=== PATIENT | female | born 1970 | race Caucasian/White ===

== ENCOUNTER 2023-04-04 11:01 | Outpatient (OUT) | payer BC, SELFPAY ==
--- NOTE | 2023-04-04 11:21 | MM_ITS ---
Patient Name: MICHAEL RICO MR#: [id number] : 1970 Exam Date: 04/04/2023 Ordering Doctor: DR Joce Soto D.O. RADIOLOGY REPORT PROCEDURE: MM TOMOSYNTHESIS SCREENING BI COMPARISON: MG MAMM SCREEN 3D TASHIA CAD, 03/15/2021. MG MAMM SCREEN 3D TASHIA CAD, 04/02/2022. INDICATIONS: Screening Calculator Name NCI Breast Cancer Risk Assessment Tool 5 Year Breast Cancer Risk 1.10% Lifetime Breast Cancer Risk 7.90% Personal Breast Cancer No Personal Ovarian Cancer No Treatments None Family Cancers None LOCATION: [facility] BREAST COMPOSITION: Heterogeneously dense,which may obscure small masses. FINDINGS: DIAGNOSTIC CATEGORY 1--NEGATIVE. NO CHANGE FROM COMPARISON ASSESSMENT. Scattered benign-appearing calcifications are present. RIGHT BREAST: No significant suspicious finding. LEFT BREAST: No significant suspicious finding. RECOMMENDATIONS: ROUTINE MAMMOGRAM AND CLINICAL EVALUATION IN 12 MONTHS. PLEASE NOTE: A NORMAL MAMMOGRAM DOES NOT EXCLUDE THE POSSIBILITY OF BREAST CANCER. A CLINICALLY SUSPICIOUS PALPABLE LUMP SHOULD BE BIOPSIED. Dictated by: Fercho Pamrar MD on 04/04/2023 at 12:41 Approved by: Fercho Parmar MD on 04/04/2023 at 12:42
[2023-04-04 11:59] LABS: Basophils Absolute Auto 0.1 10^3/uL (0.0-0.1); Basophils Percent Auto 0.6 % (0.2-2.0); Eosinophils Absolute Auto 0.3 10^3/uL (0.0-0.7); Hematocrit 35.5 % (36.0-48.0); Hemoglobin 11.8 g/dL (12.0-16.0); Immature Granulocytes Abs Auto 0.03 10^3/uL (0.00-0.03); Immature Granulocytes Pct Auto 0.3 % (0.0-0.5); Lymphocytes Absolute Auto 3.1 10^3/uL (1.2-3.8); Mean Corpuscular HGB Conc 33.2 g/dL (29.9-35.2); Mean Corpuscular Hemoglobin 31.8 pg (26.7-34.0); Mean Corpuscular Volume 95.7 fL (81.0-99.0); Monocytes Absolute Auto 0.6 10^3/uL (0.3-0.8); Monocytes Percent Auto 5.9 % (1.7-12.0); Neutrophils Absolute Auto 5.7 10^3/uL (1.4-6.5); Neutrophils Percent Auto 58.2 % (43.0-75.0); Platelet Count 371 10^3/uL (150-450); Red Blood Count 3.71 10^6/uL (4.20-5.40); Red Cell Distribution Width 12.9 % (11.0-15.0); White Blood Count 9.8 10^3/uL (4.0-11.0)
[2023-04-04 13:27] LABS: Anion Gap 13.1; BUN Creatinine Ratio 12.9; Bilirubin Total 0.4 mg/dL (0.2-1.0); Calcium 8.8 mg/dL (8.5-10.1); Carbon Dioxide 27.3 mmol/L (21.0-32.0); Chloride 101 mmol/L (98-107); Estimated GFR (African America >60 (>=60); Estimated GFR (Non-African Ame >60 (>=60); Glucose 86 mg/dL (74-106); Potassium 3.4 mmol/L (3.5-5.1); Sodium 138 mmol/L (136-145)
[2023-04-04 13:28] LABS: Alanine Aminotransferase 15 U/L (14-59); Albumin Globulin Ratio 1.1; Albumin Level 3.9 g/dL (3.4-5.0); Alkaline Phosphatase 104 U/L (46-116); Aspartate Amino Transferase 17 U/L (15-37); Cholesterol 172 mg/dL (<=200); Globulin 3.6 g/dL; HDL Cholesterol 59 mg/dL (40-60); Total Protein 7.5 g/dL (6.4-8.2); Triglycerides 130 mg/dL (<=150)
[2023-04-04 13:29] LABS: Chol HDL Ratio 2.9; Thyroid Stimulating Hormone 5.504 uIU/mL (0.358-3.740)
== END 2023-04-04 11:02 | disposition home or self-care (01) ==
LOC: MAMMO 11:06
PROVIDERS: PCP Internal Medicine; Visit Provider Internal Medicine
DX: Z12.31 Encounter for screening mammogram for malignant neoplasm of breast (principal)
CPT/HCPCS: 36415; 77063; 77067; 80053; 80061; 84443; 85025

== ENCOUNTER 2024-05-13 11:22 | Outpatient (OUT) | payer BC, SELFPAY ==
--- NOTE | 2024-05-13 11:34 | MM_ITS ---
Patient Name: MICHAEL RICO MR#: [id number] : 1970 Exam Date: 05/13/2024 Ordering Doctor: DR Joce Soto D.O. RADIOLOGY REPORT PROCEDURE: MM TOMOSYNTHESIS SCREENING BI COMPARISON: MG MAMM SCREEN 3D TASHIA CAD, 04/02/2022. MM TOMOSYNTHESIS SCREENING BI, 04/04/2023. INDICATIONS: Screening Calculator Name NCI Breast Cancer Risk Assessment Tool 5 Year Breast Cancer Risk 1.20% Lifetime Breast Cancer Risk 7.80% Personal Breast Cancer No Personal Ovarian Cancer No Treatments None Family Cancers None LOCATION: [facility] BREAST COMPOSITION: The breasts are heterogeneously dense,which may obscure small masses. FINDINGS: DIAGNOSTIC CATEGORY 1--NEGATIVE. NO CHANGE FROM COMPARISON ASSESSMENT. Scattered benign-appearing calcifications are present. RIGHT BREAST: No significant suspicious finding. LEFT BREAST: No significant suspicious finding. RECOMMENDATIONS: ROUTINE MAMMOGRAM AND CLINICAL EVALUATION IN 12 MONTHS. PLEASE NOTE: A NORMAL MAMMOGRAM DOES NOT EXCLUDE THE POSSIBILITY OF BREAST CANCER. A CLINICALLY SUSPICIOUS PALPABLE LUMP SHOULD BE BIOPSIED. Dictated by: Fercho Parmar MD on 05/13/2024 at 12:16 Approved by: Fercho Parmar MD on 05/13/2024 at 12:53
--- OUTSIDE RECORDS SUMMARY | 2024-05-13 11:46 | XMS_ITS | CCD ---
Author Organization 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 Name Role Phone CHARLES, DR COLEY Admitting Unavailable BALL, DR COLEY Attending Unavailable BALL, DR COLEY Primary Care Unavailable BALL, DR COLEY Consulting Unavailable GONZALEZ, DR RENETTA Davis Admitting Unavailable GONZALEZ, DR RENETTA Davis Attending Unavailable BALL, DR COLEY Primary Care Unavailable GONZALEZ, DR RENETTA Davis Consulting Unavailable BALL, DR COLEY Admitting Unavailable BALL, DR COLEY Attending Unavailable BALL, DR COLEY Primary Care Unavailable BALL, DR COLEY Consulting Unavailable WEST, DR KATHY Salinas Consulting Unavailable BALL, DR COLEY Admitting Unavailable BALL, DR COLEY Attending Unavailable BALL, DR COLEY Primary Care Unavailable BALL, DR COLEY Consulting Unavailable Ball, Joce Unavailable Allergies Allergy Classification Reported Allergen(s) Allergy Type Date of Onset Reaction(s) Facility (1 source) Penicillins Drug allergy (disorder) 09-08-2012 [facility] Repository (6 sources) Penicillin G Drug Allergy Unknown [facility] Other Medications Current Medications Medication Drug Class(es) Dates Sig (Normalized) Sig (Original) atorvastatin 20 mg oral tablet (9 sources) HMG-CoA Reductase Inhibitor Start: 12-26-2023 End: 03-23-2024 Atorvastatin 20 mg tablet Active 0 .ROUTE .COMPLEX 90 March 23, 2024 7:00am TAKE 1 TABLET DAILY IN THE EVENING Start: 12-25-2023 End: 12-26-2023 take 1 tablet by mouth once daily Atorvastatin 20 mg tablet Discontinued 20 MG PO Daily December 24, 2023 11:00pm December 26, 2023 7:33am Atorvastatin Ede cium 20 mg TAKE 1 TABLET DAILY IN THE EVENING Active hydrOXYzine pamoate 25 mg oral capsule (6 sources) Antihistamine take 1 capsule by mouth three times daily as needed Vistaril 25 MG 1 capsule Orally Three times a day prn for 30 Active levothyroxine sodium 0.088 mg oral tablet (9 sources) l-Thyroxine Start: 07-04-2023 End: 07-05-2023 Levothyroxine 88 mcg tablet Active 0 .ROUTE .COMPLEX July 05, 2023 8:32am TAKE 1 TABLET DAILY ON AN EMPTY STOMACH Start: 07-04-2023 End: 07-04-2023 take 1 tablet by mouth once daily Levothyroxine 88 mcg tablet Discontinued 88 MCG PO Daily July 04, 2023 12:00am July 04, 2023 8:39am take 1 tablet by kirsten th once daily Levothyroxine Sodium 88 MCG TAKE 1 TABLET DAILY ON AN EMPTY STOMACH Orally qd for 90 days Active take 1 tablet by kirsten th once daily Levothyroxine Sodium 88 MCG TAKE 1 TABLET DAILY ON AN EMPTY STOMACH Orally qd for 30 days Active Levothyroxine So dium 75 MCG TAKE 1 TABLET DAILY ON AN EMPTY STOMACH Active PARoxetine hydrochloride 40 mg oral tablet (8 sources) Serotonin Reuptake Inhibitor Start: 02-05-2024 Paroxetine Hcl 40 mg tablet Active 0 .ROUTE .COMPLEX February 05, 2024 9:35am TAKE 1 TABLET DAILY Start: 02-05-2024 End: 02-05-2024 take 1 tablet by mouth once daily Paroxetine Hcl 40 mg tablet Discontinued 40 MG PO Daily February 04, 2024 11:00pm February 05, 2024 9:36am PARoxetine HCl 4 0 mg TAKE 1 TABLET DAILY Active vitamin b12 1 mg sublingual tablet (7 sources) Vitamin B12 Start: 05-06-2024 take 1 tablet under the tongue once daily Cyanocobalamin (Vitamin B-12) 1,000 mcg tablet, sublingual Active 1000 MCG SUBLINGUAL Daily May 06, 2024 12:00am Start: 03-07-2023 take 1 tablet under the tongue once daily Cyanocobalamin 1000 MCG 1 tablet under the tongue and allow to dissolve Sublingual Once a day for 90 days Feb, Active Completed/Discontinued Medications Medication Drug Class(es) Dates Sig (Normalized) Sig (Original) triamcinolone acetonide 40 mg/ml injectable suspension (1 source) Corticosteroid Start: 05-03-2023 Kenalog-40 Apr, 60 mg Problems Problem Classification Problem Date Documented Date Episodic/Chronic Adjustment disorders (6 sources) Adjustment disorder with anxious mood; Translations: [Adjustment disorder with anxiety] Chronic Allergic reactions (1 source) Allergic contact dermatitis due to cosmetics Episodic Anxiety disorders (10 sources) Generalized anxiety disorder; Translations: [Generalized anxiety disorder] Chronic Deficiency and other anemia (7 sources) Pernicious anemia; Translations: [Vitamin B12 deficiency anemia due to intrinsic factor deficiency] 04-23-2024 Episodic Deficiency and other anemia (3 sources) Vitamin B12 deficiency anemia due to intrinsic factor deficiency; Translations: [Pernicious anemia] Episodic Disorders of lipid metabolism (14 sources) Mixed hyperlipidemia; Translations: [Mixed hyperlipidemia] Chronic Nutritional deficiencies (6 sources) Vitamin B12 deficiency (non anemic); Translations: [Deficiency of other specified B group vitamins] Episodic Other connective tissue disease (6 sources) Disorder of musculoskeletal system; Translations: [Other symptoms and signs involving the musculoskeletal system] Episodic Other connective tissue disease (6 sources) Fibromyalgia; Translations: [Fibromyalgia] Episodic Other liver diseases (4 sources) Abnormal levels of other serum enzymes; Translations: [ABNORMAL LEVELS OTHER SERUM ENZYMES] Onset: 04-17-2022 Episodic Other liver diseases (6 sources) Alkaline phosphatase raised; Translations: [Abnormal levels of other serum enzymes] Episodic Other nervous system disorders (6 sources) Bilateral carpal tunnel syndrome; Translations: [Carpal tunnel syndrome, bilateral upper limbs] Chronic Other screening for suspected conditions (not mental disorders or infectious disease) (16 sources) Encounter for screening mammogram for malignant neoplasm of breast; Translations: [Encounter for screening for malignant neoplasm of cervix] Onset: 02-14-2022 Episodic Peripheral and visceral atherosclerosis (6 sources) Other atherosclerosis of [place] arteries of extremities, bilateral legs; Translations: [Other atherosclerosis of [place] arteries of extremities, bilateral legs] Chronic Spondylosis; intervertebral disc disorders; other back problems (10 sources) Lumbar spondylosis; Translations: [Spondylosis without myelopathy or radiculopathy, lumbar region] Chronic Substance-related disorders (10 sources) Nicotine dependence; Translations: [Nicotine dependence, cigarettes, uncomplicated] Chronic Thyroid disorders (20 sources) Paul thyroiditis; Translations: [Autoimmune thyroiditis] Chronic Results Test Name Value Interpretation Reference Range Facil ity PTH INTACTon 04-18-2022 PTH, Intact 42 pg/mL Normal 15-65 [facility] Comment on above: Performed By: #### P THINT #### [facility] [address] [place] [address] Dr. Kb Rangel ALKALINE PHOSPHAon ALP [Catalytic activity/Vol] 148 U/L Critically high 46-116 [facility] Comment on above: Performed By: #### A LP, PHOS, GGT #### [facility] [address] [address] [address] Kb Rangel GGTon 04-17-2022 Gamma glutamyl transferase [Catalytic activity/Vol] 40 U/L Normal 8-55 [facility] Comment on above: Performed By: #### T SH, LIPID, CMP #### [facility] [address] [place], [place] [address] Dr. Kb Rangel PHOSPHORUSon 04-17-2022 Phosphate [Mass/Vol] 3.8 mg/dL Normal 2.6-4.[address] [facility] Comment on above: Performed By: #### A LP, PHOS, GGT #### [facility] [address] [place] [address] Dr. Kb Rangel MG MAMM SCREEN 3D TASHIA CADon 04-02-2022 MG MAMM SCREEN 3D TASHIA CAD Patient: ANN SEYMOUR Exam Date: 04/02/2022 : 1970 Gender:F Ordering : DR JOCE TERRELL D.O. Admission #: [id number] Family : Order #: [id number] CLICK HERE TO VIEW EXAM RADIOLOGY REPORT PROCEDURE: MAMMOGRAM SCREENING 3D BILATERAL CAD COMPARISON: MG MAMM SCREEN TASHIA W CAD, 03/03/2020. MG MAMM SCREEN 3D TASHIA CAD, 03/15/2021. INDICATIONS: Screening mammography Calculator Name NCI Breast Cancer Risk Assessment Tool 5 Year Breast Cancer Risk 1.10% Lifetime Breast Cancer Risk 8.10% Personal Breast Cancer No Personal Ovarian Cancer No Treatments None Family Cancers None LOCATION: [facility] BREAST COMPOSITION: Heterogeneously dense,which may obscure small masses. FINDINGS: DIAGNOSTIC CATEGORY 1--NEGATIVE. NO CHANGE FROM COMPARISON ASSESSMENT. Scattered benign-appearing calcifications are present. Scattered benign-appearing lymph nodes are present. RIGHT BREAST: No significant suspicious finding. LEFT BREAST: No significant suspicious finding. RECOMMENDATIONS: ROUTINE MAMMOGRAM AND CLINICAL EVALUATION IN 12 MONTHS. PLEASE NOTE: A NORMAL MAMMOGRAM DOES NOT EXCLUDE THE POSSIBILITY OF BREAST CANCER. A CLINICALLY SUSPICIOUS PALPABLE LUMP SHOULD BE BIOPSIED. Dictated by: Kathy Parmar MD on 04/02/2022 at 15:16 Approved by: Kathy Parmar MD on 04/02/2022 at 15:[address] [facility] PAP ACOG PANEL 2: 30 to 65on 02-20-2022 . . Normal [facility] Comment on above: Result Comment: Perf ormed at: WB Performed By: #### [id number] #### [facility] [address] [place] [address] Dr. Kb Rangel Age Gdln ACOG Testing 30-[address] [facility] Comment on above: Performed By: #### [id number] #### [facility] [address] [place] [address] Dr. Kb Rangel DIAGNOSIS: Comment Normal [facility] Comment on above: Result Comment: NEGA TIVE FOR INTRAEPITHELIAL LESION OR MALIGNANCY. FUNGAL ORGANISMS MORPHOLOGICALLY CONSISTENT WITH JOSÉ ANTONIO SPECIES ARE PRESENT. Performed at: WB Performed By: #### [id number] #### [facility] [address] [place] [address] Dr. Kb Rangel HPV Aptima Negative Normal Negative [facility] Comment on above: Result Comment: This nucleic acid amplification test detects fourteen high-risk HPV types (16,18,31,33,35,39,45,51,52,56,58,59,66,68) without differentiation. Performed at: =G Performed By: #### [id number] #### [facility] [address] [place] [address] Dr. Kb Rangel Methodology: Comment Normal [facility] Comment on above: Result Comment: This liquid based ThinPrep(R) pap test was screened with the use of an image guided system. Performed at: WB Performed By: #### [id number] #### [facility] [address] [place] [address] Dr. Kb Rangel Note: Comment Normal [facility] Comment on above: Result Comment: The Pap smear is a screening test designed to aid in the detection of premalignant and malignant conditions of the uterine cervix. It is not a diagnostic procedure and should not be used as the sole means of detecting cervical cancer. Both false-positive and false-negative reports do occur. . Performed at: WB Performed By: #### [id number] #### [facility] [address] [place] [address] Dr. Kb Rangel Performed by: Comment Normal [facility] Comment on above: Result Comment: Vesna Ruggiero, Manager Financial Reporting (ASCP) Performed at: WB Performed By: #### [id number] #### [facility] [address] [place] [address] Dr. Kb Rangel Specimen adequacy: Comment Normal [facility] Comment on above: Result Comment: Sati sfactory for evaluation. No endocervical component is identified. Performed at: WB Performed By: #### [id number] #### [facility] [address] [place] [address] Dr. Kb Rangel CBC AUTO DIFFon 02-06-2022 BASO # 0.1 103/ul Normal 0.0-0.[address] [facility] Comment on above: Performed By: #### C BC #### [facility] [address] [place] [address] Dr. Kb Rangel Basophils/100 WBC (Bld) 0.6 % Normal 0.2-2.[address] [facility] Comment on above: Performed By: #### C BC #### [facility] [address] [place] [address] Dr. Kb Rangel EO # 0.3 103/ul Normal 0.0-0.[address] [facility] Comment on above: Performed By: #### C BC #### [facility] [address] [place] [address] Dr. Kb Rangel Eosinophils/100 WBC (Bld) 2.3 % Normal 0.9-7.[address] [facility] Comment on above: Performed By: #### C BC #### [facility] [address] [place] [address] Dr. Kb Rangel Erythrocyte distribution width (RBC) [Ratio] 12.9 % Normal 11.0-15.[address] [facility] Comment on above: Performed By: #### C BC #### [facility] [address] [place] [address] Dr. Kb Rangel Hematocrit (Bld) [Volume fraction] 38.1 % Normal 36.0-48.[address] [facility] Comment on above: Performed By: #### C BC #### [facility] [address] [place] [address] Dr. Kb Rangel Hemoglobin (Bld) [Mass/Vol] 12.7 g/dL Normal 12.0-16.[address] [facility] Comment on above: Performed By: #### C BC #### [facility] [address] [place] [address] Dr. Kb Rangel IG # 0.03 10e3/ul Normal 0.00-0.[address] [facility] Comment on above: Performed By: #### C BC #### [facility] [address] [place] [address] Dr. Kb Rangel IG % 0.3 % Normal 0.0-0.[address] [facility] Comment on above: Performed By: #### C BC #### [facility] [address] [place] [address] Dr. Kb Rangel LYMPH # 3.2 103/ul Normal 1.2-3.[address] [facility] Comment on above: Performed By: #### C BC #### [facility] [address] [place] [address] Dr. Kb Rangel Lymphocytes/100 WBC (Bld) 29.7 % Normal 20.5-60.[address] [facility] Comment on above: Performed By: #### C BC #### [facility] [address] [place] [address] Dr. Kb Rangel MANUAL DIFF REQ NO Normal [facility] Comment on above: Performed By: #### C BC #### [facility] [address] [place] [address] Dr. Kb Rangel MCH (RBC) [Entitic mass] 31.4 pg Normal 26.7-34.[address] [facility] Comment on above: Performed By: #### C BC #### [facility] [address] [place] [address] Dr. Kb Rangel MCHC (RBC) [Mass/Vol] 33.3 g/dL Normal 29.9-35.[address] [facility] Comment on above: Performed By: #### C BC #### [facility] [address] [address] [address] Kb Rangel MCV (RBC) [Entitic vol] 94.3 fL Normal 81.0-99.[address] [facility] Comment on above: Performed By: #### C BC #### [facility] [address] [place] [address] Dr. Kb Rangel MONO # 0.6 103/ul Normal 0.3-0.[address] [facility] Comment on above: Performed By: #### C BC #### [facility] [address] [place] [address] Dr. Kb Rangel Monocytes/100 WBC (Bld) 5.7 % Normal 1.7-12.[address] [facility] Comment on above: Performed By: #### C BC #### [facility] [address] [place] [address] Dr. Kb Rangel NEUT # 6.7 103/ul Critically high 1.4-6.5 [facility] Comment on above: Performed By: #### C BC #### [facility] [address] [place] [address] Dr. Kb Rangel Neutrophils/100 WBC (Bld) 61.4 % Normal 43.0-75.0 [facility] Comment on above: Performed By: #### C BC #### [facility] [address] [place] [address] Dr. Kb Rangel Platelet mean volume (Bld) [Entitic vol] 8.8 fL Critically low 9.5-13.5 [facility] Comment on above: Performed By: #### C BC #### [facility] [address] [place] [address] Dr. Kb Rangel PLT 379 103/ul Normal 150-450 [facility] Comment on above: Performed By: #### C BC #### [facility] [address] [place] [address] Dr. Kb Rangel RBC 4.04 106/ul Critically low 4.20-5.40 [facility] Comment on above: Performed By: #### C BC #### [facility] [address] [address] [address] Kb Rangel WBC 10.9 103/ul Normal 4.0-11.[address] [facility] Comment on above: Performed By: #### C BC #### [facility] [address] [address] [address] Kb Rangel LIPID PROFILEon 02-06-2022 CHOL-HDL RATIO NORM SEE BELOW Normal [facility] Comment on above: Result Comment: 3.3 - 4.4 LOW RISK 4.4 - 7.1 AVERAGE RISK 7.1 - 11.0 MODERATE RISK >11.0 HIGH RISK Performed By: #### T SH, LIPID, CMP #### [facility] [address] [address] [address] Kb Rangel Cholesterol [Mass/Vol] 189 mg/dL Normal <=200 [facility] Comment on above: Performed By: #### T SH, LIPID, CMP #### [facility] [address] [address] [address] Kb Rangel Cholesterol in HDL [Mass/Vol] 57 mg/dL Normal 40-[address] [facility] Comment on above: Performed By: #### T SH, LIPID, CMP #### [facility] [address] [address] [address] Kb Rangel Cholesterol in LDL [Mass/Vol] 103.4 mg/dL Normal [facility] Comment on above: Performed By: #### T SH, LIPID, CMP #### [facility] [address] [place] [address] Dr. Kb Rangel Cholesterol.total/ Cholesterol in HDL [Mass ratio] 3.3 {ratio} Normal [facility] Comment on above: Performed By: #### T SH, LIPID, CMP #### [facility] [address] [place] [address] Dr. Kb Rangel HDL NORMAL > or = 60 mg/dl - LO W CARDIOVASCULAR RISK <40 mg/dl - HIGH CARDIOVASCULAR RISK Normal [facility] Comment on above: Performed By: #### T SH, LIPID, CMP #### [facility] [address] [address] [address] Kb Rangel LDL CALC NORMAL SEE BELOW Normal [facility] Comment on above: Result Comment: <100 mg/dl OPTIMAL 100 - 129 mg/dl NEAR OR ABOVE OPTIMAL 130 - 159 mg/dl BORDERLINE HIGH 160 - 189 mg/dl HIGH >190 mg/dl VERY HIGH Performed By: #### T KARIN, LIPID, CMP #### [facility] [address] [address] [address] Kb Rangel Triglyceride [Mass/Vol] 143 mg/dL Normal <=[address] [facility] Comment on above: Performed By: #### T KARIN, LIPID, CMP #### [facility] [address] [address] [address] Kb Rangel VLDL CALC 28.6 mg/dL Normal [facility] Comment on above: Performed By: #### T KARIN, LIPID, CMP #### [facility] [address] [place] [address] Dr. Kb Rangel PROF 14(COMP METB)on 022 Albumin [Mass/Vol] 4.0 g/dL Normal 3.4-5.0 [facility] Comment on above: Performed By: #### T KARIN, LIPID, CMP #### [facility] [address] [place] [address] Dr. Kb Rangel Albumin/Globulin [Mass ratio] 1.1 {ratio} Normal [facility] Comment on above: Performed By: #### T KARIN, LIPID, CMP #### [facility] [address] [place] [address] Dr. Kb Rangel ALP [Catalytic activity/Vol] 140 U/L Critically high 46-116 [facility] Comment on above: Performed By: #### T KARIN, LIPID, CMP #### [facility] [address] [place] [address] Dr. Kb Rangel ALT [Catalytic activity/Vol] 25 U/L Normal 14-[address] [facility] Comment on above: Performed By: #### T KARIN, LIPID, CMP #### [facility] [address] [place] [address] Dr. Kb Rangel Anion gap [Moles/Vol] 11.8 mmol/L Normal [facility] Comment on above: Performed By: #### T KARIN, LIPID, CMP #### [facility] [address] [place] [address] Dr. Kb Rangel AST [Catalytic activity/Vol] 18 U/L Normal 15-[address] [facility] Comment on above: Performed By: #### T KARIN, LIPID, CMP #### [facility] [address] [place] [address] Dr. Kb Rangel Bilirubin [Mass/Vol] 0.4 mg/dL Normal 0.2-1.0 [facility] Comment on above: Performed By: #### T KARIN LIPID, CMP #### [facility] [address] [place] [address] Dr. Kb Rangel Calcium [Mass/Vol] 9.1 mg/dL Normal 8.5-10.1 [facility] Comment on above: Performed By: #### T KARIN LIPID, CMP #### [facility] [address] [place] [address] Dr. Kb Rangel Chloride [Moles/Vol] 102 mmol/L Normal 98-107 [facility] Comment on above: Performed By: #### T KARIN LIPID, CMP #### [facility] [address] [place] [address] Dr. Kb Rangel CO2 [Moles/Vol] 30.6 mmol/L Normal 21.0-32.0 [facility] Comment on above: Performed By: #### T KARIN, LIPID, CMP #### [facility] [address] [place] [address] Dr. Kb Rangel Creatinine [Mass/Vol] 0.92 mg/dL Normal 0.55-1.02 [facility] Comment on above: Performed By: #### T KARIN, LIPID, CMP #### [facility] [address] [place] [address] Dr. Kb Rangel EGFR-AF QATARI >60 Normal >=60 [facility] Comment on above: Performed By: #### T SH, LIPID, CMP #### [facility] [address] [place] [address] Dr. Kb Rangel EGFR-NON AF QATARI >60 Normal >=60 [facility] Comment on above: Performed By: #### T KARIN, LIPID, CMP #### [facility] [address] [place] [address] Dr. Kb Rangel Globulin (S) [Mass/Vol] 3.8 g/dL Normal [facility] Comment on above: Performed By: #### T KARIN, LIPID, CMP #### [facility] [address] [place] [address] Dr. Kb Rangel Glucose [Mass/Vol] 94 mg/dL Normal 74-106 [facility] Comment on above: Performed By: #### T KARIN LIPID, CMP #### [facility] [address] [place] [address] Dr. Kb Rangel Potassium [Moles/Vol] 4.4 mmol/L Normal 3.5-5.[address] [facility] Comment on above: Performed By: #### T KARIN LIPID, CMP #### [facility] [address] [place] [address] Dr. Kb Rangel Protein [Mass/Vol] 7.8 g/dL Normal 6.4-8.2 [facility] Comment on above: Performed By: #### T KARIN LIPID, CMP #### [facility] [address] [place] [address] Dr. Kb Rangel Sodium [Moles/Vol] 140 mmol/L Normal 136-145 [facility] Comment on above: Performed By: #### T KARIN, LIPID, CMP #### [facility] [address] [place] [address] Dr. Kb Rangel Urea nitrogen [Mass/Vol] 8.0 mg/dL Normal 7.0-18.[address] [facility] Comment on above: Performed By: #### T KARIN, LIPID, CMP #### [facility] [address] [place] [address] Dr. Kb Rangel Urea nitrogen/Creatinin e [Mass ratio] 8.7 mg/mg Normal [facility] Comment on above: Performed By: #### T KARIN, LIPID, CMP #### [facility] [address] [address] [address] Kb Rangel TSHon 02-06-2022 TSH 3.387 uIU/mL Normal 0.358-3.740 [facility] Comment on above: Performed By: #### T SH, LIPID, CMP #### [facility] [address] [address] [address] Kb Rangel VITAMIN D 25 OHon 02-06-2022 VIT D 25-OH 63.8 ng/mL Normal [facility] Comment on above: Performed By: #### V ITAD #### [facility] [address] [address] [address] Kb Rangel VIT D RANGES SEE BELOW Normal [facility] Comment on above: Result Comment: <20 ng/mL Vit D deficient 20 - <30 ng/mL Vit D insufficient 30 - 100 ng/mL Vit D sufficient >100 ng/mL Potential Toxicity Performed By: #### V ITAD #### [facility] [address] [address] [address] Kb Rangel Consent for COVID Vaccineon 08-06-2020 SARS-CoV-2 (COVID-19) RNA URVASHI+probe Ql (Unsp spec) [id number]. 00CD:127 Normal [facility] Coding Summary.on 07-20-2020 Coding Summary. CODING DATE: 07/20/2020 FINAL [facility] STATUS: PAYOR: Dejon APC DESCRIPTION [employer] - Level 1B ($11-$20) ADMIT DX: REASON FOR VISIT DX: Z23 Encounter for immunization FINAL DX: PRINCIPAL: Z23 Encounter for immunization SECONDARY: PYMT PROC APC STAT DESCRIPTION DOCTOR NAME DATE NOTE: The code number assigned matches the documented diagnosis and / or procedure in the patient's chart. However, the narrative phrase printed from the coding software may appear abbreviated, or result in slightly different terminology. Coded By: Ana Maria Odom Date Saved: 07/20/2020 10:55 am Normal [facility] Consent for COVID Vaccineon 07-16-2020 SARS-CoV-2 (COVID-19) RNA URVASHI+probe Ql (Unsp spec) [id number]. 00CD:127 [facility] Consent for Treatmenton 06-28 Consent for Treatment [id number]. 00CD:127 [facility] Vital Signs Date Time Vital Sign Value Performing Clinician Facility 05-06-2024 14:21-0500 Body height 162.56 cm [facility] 05-06-2024 14:21-0500 Body mass index (BMI) [Ratio] 24 kg/m2 [facility] 05-06-2024 14:21-0500 Body weight 63.55 kg [facility] 05-06-2024 14:21-0500 Diastolic blood pressure 83 mm[Hg] [facility] 05-06-2024 14:21-0500 Heart rate 103 /min [facility] 05-06-2024 14:21-0500 Respiratory rate 12 /min [facility] 05-06-2024 14:21-0500 Systolic blood pressure 112 mm[Hg] [facility] 05-03-2023 11:30-0500 Body height 160.02 cm Joce Ball Other [facility] [email or web address] Other 05-03-2023 11:30-0500 Body mass index (BMI) [Ratio] 26.39 kg/m2 Joce Ball Other [facility] [email or web address] Other 05-03-2023 11:30-0500 Body weight 67.59 kg Joce Ball Other [employer] [facility] [email or web address] Other 05-03-2023 11:30-0500 Diastolic blood pressure 75 mm[Hg] Joce Ball Other [employer] [facility] [email or web address] Other 05-03-2023 11:30-0500 Respiratory rate 12 /min Joce Ball Other [employer] [facility] [email or web address] Other 05-03-2023 11:30-0500 Systolic blood pressure 117 mm[Hg] Joce Ball Other [facility] Other 03-07-2023 11:30-0500 Body height 160.02 cm Joce Ball Other [facility] Other 03-07-2023 11:30-0500 Body mass index (BMI) [Ratio] 26.25 kg/m2 Joce Ball Other [facility] Other 03-07-2023 11:30-0500 Body weight 67.22 kg Joce [employer] Other [facility] Other 03-07-2023 11:30-0500 Diastolic blood pressure 81 mm[Hg] Joce [employer] Other [facility] Other 03-07-2023 11:30-0500 Respiratory rate 12 /min Joce [employer] Other [facility] Other 03-07-2023 11:30-0500 Systolic blood pressure 119 mm[Hg] Joce [employer] Other [facility] Other Encounters Encounter Date Encounter Type Care Provider Facility Start: 05-06-2024 End: 05-06-2024 ambulatory [facility] Work Phone: Start: 05-06-2024 End: 05-06-2024 Encounter for general adult medical examination without abnormal findings [facility] Start: 05-06-2024 End: 05-06-2024 Patient encounter procedure [facility] Work Phone: Start: 04-23-2024 Patient encounter status [facility] Start: 05-03-2023 End: 05-03-2023 ambulatory Joce Terrell Other [facility] Other Start: 05-03-2023 Office outpatient vi sit 15 minutes Joce Terrell [facility] Start: 04-04-2023 End: 04-04-2023 ambulatory Joce Terrell Other [facility] Other Start: 04-04-2023 Telephone encounter Joce Terrell [facility] Start: 03-07-2023 (WellA) Well Adult Joce Terrell [facility] Start: 03-07-2023 End: 03-07-2023 ambulatory Joce Terrell Other [facility] Other Start: 03-07-2023 Encounter for genera l adult medical examination without abnormal findings Joce Terrell [facility] Start: 04-17-2022 End: 04-18-[address] JOCE TERRELL Facility:[facility] Start: 04-02-2022 End: 04-03-[address] JOCE TERRELL Facility:[facility] Start: 02-14-2022 End: 02-14-[address] RENETTA GONZALEZ Facility:[facility] Start: 02-08-2022 Encounter for genera l adult medical examination without abnormal findings DR JOCE TERRELL [facility] Start: 02-06-2022 End: 02-07-[address] JOCE TERRELL Facility:[facility] Start: 02-06-2022 End: 02-07-2022 Encounter for general adult medical examination without abnormal findings DR JOCE TERRELL Facility:[facility] Plan of Treatment Date Care Activity Detail Author MG Breast - bilateral Screening [facility] Payers Date Payer Category Payer Unknown [id number] 2.16.84 [id number] 1970 Unknown [id number] 2.16.84 [id number] 1970 Unknown [id number] 2.16.84 [id number] 1970 Unknown [id number] 2.16.84 [id number] 1961 Unknown [id number] Social History Date Type Detail Facility Sex Assigned At [facility] Other Start: 05-03-2023 Tobacco smoking stat us NHIS Never smoked tobacco (finding) [facility] Start: 05-06-2024 Sex Female (finding) [facility] Start: 1970 Sex Assigned At Female F [facility] Evaluation note 05-03-2023 Note Date & Type Note Facility 05-03-2023 Evaluation note Encounter Date Diagnosis Assessment Notes Apr, Allergic contact dermatitis due to cosmetics (ICD-10 - L23.2) Cool compresses, moisturizers. Claritin daily w/ Benadryl at HS. Prednisone if recurs or persists [facility] [email or web address] Other Evaluation note 04-04-2023 Note Date & Type Note Facility 04-04-2023 Evaluation note Encounter Date Diagnosis Assessment Notes Mar, Autoimmune thyroiditis (ICD-10 - E06.3) [facility] [email or web address] Other Evaluation note 03-07-2023 Note Date & Type Note Facility 03-07-2023 Evaluation note Encounter Date Diagnosis Assessment Notes Feb, Wellness examination (ICD-10 - Z00.00) Healthy diet and exercise. Reviewed age-appropriate preventive testing recommended. Feb, Cigarette nicotine dependence without complication (ICD-10 - F17.210) This patient has been encouraged to quit tobacco use immediately. They are aware of the hazards associated with tobacco use, including but not limited to respiratory infections, vascular disease and cancers. Feb, Hypercholesteremia (ICD-10 - E78.00) Instructed on diet and exercise with continued statin therapy.Discussed the beneficial effects of lowering cholesterol in reducing the risk for cerebrovascular and cardiovascular disease. Feb, COLBY (generalized anxiety disorder) (ICD-10 - F41.1) Healthy diet and exercise, keep active No change in medical treatment Feb, Lumbar spondylosis (ICD-10 - M47.816) The patient is instructed to avoid bending, twisting or lifting. They are to use intermittent heat and ice as needed. They may schedule a massage or gentle manipulation. They may safely use Tylenol as needed. Feb, Autoimmune thyroiditis (ICD-10 - E06.3) Clinically euthyroid, check TSH Feb, Other specified hypothyroidism (ICD-10 - E03.8) Feb, PA (pernicious anemia) (ICD-10 - D51.0) Noncompliant w/ B12 injections, recommend SL replacement daily Feb, Screening mammogram for breast cancer (ICD-10 - Z12.31) Instructed patient on monthly SBE and yearly mammograms. Feb, Screening for colon cancer (ICD-10 - Z12.11) Never completed Cologuard from last year. Denies change in bowel habits, melena or hematochezia [facility] Other Evaluation note Note Date & Type Note Facility Evaluation note Diagnosis Onset Date Resolution COLBY (generalized anxiety disorder) acute May 06, 2:14pm Hypothyroid acute May 06, 2024 2:14pm Lumbar spondylosis acute 2024 2:14pm Nicotine addiction acute 2024 2:14pm Pernicious anemia acute May 06, 2024 2:14pm Screening for colon cancer acute May 06 2:14pm Screening mammogram for breast cancer acute May 06 2:14pm Wellness examination acute 2024 2:14pm [facility] Work Phone: History general Narrative - Reported Note Date & Type Note Facility History general Narrative - Reported Type Medical History Bilateral carpal tunnel syndrome Medical History Fibromyalgia Medical History PA (pernicious anemia) Medical History Bilateral leg weakness Medical History COLBY (generalized anxiety disorde r) Medical History Lumbar spondylosis Medical History Elevated alkaline phosphatase [place] Medical History Hyperlipemia, mixed Medical History B12 deficiency Medical History 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, bilateral legs Medical History Acquired autoimmune hypothyroidi sm Surgical History LUMBAR DISCECTOMY Surgical History OVARIAN CYSTECTOMY Surgical History Discectomy L5S1 Hospitalization History SEE SURGICAL HX [facility] Other Summary Purpose Family History Relationship Condition Age at Onset Recorded Date/T mahsa father Hypertension Unknown mother Diabetes mellitus Unknown sister Hypertension Unknown Advance Directives Advance Directive Response Recorded Date/ Time Advance Directives No March 30, 2024 9:59am Chief Complaint and Reason for Visit Chief Complaint Admit Date wellness May 06, 2024 2: 14pm Reason for Visit Admit Date COLBY (generalized anxiety disorder) , 2025 2:14pm Hypothyroid May 06, 2024 2: 14pm Lumbar spondylosis May 06, 2024 2: 14pm Nicotine addiction May 06, 2024 2: 14pm Pernicious anemia May 06, 2024 2: 14pm Screening for colon cancer May 06, 2024 2:14pm Screening mammogram for breast cancer Randy nuary 2024 2:14pm Wellness examination May 06, 2024 2 :14pm Additional Source Comments INFORMATION SOURCE (unrecogn ized section and content) DATE CREATED AUTHOR 10/29/2020 [facility] [place] [facility] DATE CREATED AUTHOR AUTHOR'S ORGANIZ ATION 04/25/2022 [facility] REASON FOR VISIT (unrecogniz ed section and content) WellnessWellnessNo Informati onNo InformationNo InformationRash Care Teams (unrecognized sec tion and content) Team Status: Active Member Role Status Dates Joce Terrell DO Primary Care Provider Active Team Status: Inactive Member Role Status Dates Joce Terrell DO Primary Care Provide r, Attending Provider Active Start: May 06, 2024 End: May 06, 2024 Goals (unrecognized section and content) Goals may be documented in a n alternate section FOR RECORDS PERTAINING TO PATIENTS WHO ARE OR HAVE BEEN ENROLLED IN A CHEMICAL DEPENDENCY/SUBSTANCEABUSE PROGRAM, SOME INFORMATION MAY BE OMITTED. This clinical summary was aggregated from multiple sources. Caution should be exercised in using it in the provision of clinical care. This summary normalizes information from multiple sources, and as a consequence, information in this document may materially change the coding, format and clinical context of patient data. In addition, data may be omitted in some cases. CLINICAL DECISIONS SHOULD BE BASED ON THE PRIMARY CLINICAL RECORDS. [facility] [employer] provides no warranty or guarantee of the accuracy or completeness of information in this document.
--- NOTE | 2024-05-13 11:53 | XR_ITS ---
The [address] [address] Patient Name: MICHAEL RICO MRN: [id number] date: 1970 Sex: F Assigned Patient Location: [facility] Current Patient Location: Accession/Order Number: [id number] Exam Date: 05/13/2024 11:45 Report Date: 05/14/2024 07:35 At the request of: VIANCA TERRELL Procedure: XR hip LT 2V w/ pelvis PROCEDURE: XR hip LT 2V w/ pelvis COMPARISON: None. HISTORY: Pain Of Left Hip FINDINGS: BONES:No acute fracture or dislocation. Severe left hip osteoarthropathy with joint space narrowing. There is partial collapse and remodeling of the femoral head. Mild to moderate spondylosis of the spine SOFT TISSUES:Negative. No visible soft tissue swelling. EFFUSION:None visible. OTHER: Negative. XR/XR hip LT 2V w/ pelvis IMPRESSION: Severe left hip osteoarthritis with partial collapse of the femoral head Electronically authenticated by: KATHY CORDOBA Date: 05/14/2024 07:35
[2024-05-13 12:01] LABS: Basophils Absolute Auto 0.1 10^3/uL (0.0-0.1); Basophils Percent Auto 0.6 % (0.2-2.0); Eosinophils Absolute Auto 0.2 10^3/uL (0.0-0.7); Eosinophils Percent Auto 2.8 % (0.9-7.0); Hematocrit 38.7 % (36.0-48.0); Hemoglobin 12.9 g/dL (12.0-16.0); Immature Granulocytes Abs Auto 0.03 10^3/uL (0.00-0.03); Immature Granulocytes Pct Auto 0.3 % (0.0-0.5); Lymphocytes Absolute Auto 2.8 10^3/uL (1.2-3.8); Mean Corpuscular HGB Conc 33.3 g/dL (29.9-35.2); Mean Corpuscular Hemoglobin 31.2 pg (26.7-34.0); Mean Corpuscular Volume 93.5 fL (81.0-99.0); Mean Platelet Volume 8.6 fL (9.5-13.5); Monocytes Absolute Auto 0.6 10^3/uL (0.3-0.8); Monocytes Percent Auto 7.2 % (1.7-12.0); Neutrophils Absolute Auto 4.8 10^3/uL (1.4-6.5); Neutrophils Percent Auto 56.1 % (43.0-75.0); Platelet Count 398 10^3/uL (150-450); Red Blood Count 4.14 10^6/uL (4.20-5.40); Red Cell Distribution Width 12.8 % (11.0-15.0); White Blood Count 8.6 10^3/uL (4.0-11.0)
[2024-05-13 13:06] LABS: Chloride 100 mmol/L (98-107); Sodium 138 mmol/L (136-145)
[2024-05-13 13:07] LABS: Alanine Aminotransferase 24 U/L (14-59); Albumin Level 3.8 g/dL (3.4-5.0); Alkaline Phosphatase 144 U/L (46-116); Anion Gap 10.8; Aspartate Amino Transferase 18 U/L (15-37); Bilirubin Total 0.3 mg/dL (0.2-1.0); Calcium 9.1 mg/dL (8.5-10.1); Carbon Dioxide 31.2 mmol/L (21.0-32.0); Cholesterol 204 mg/dL (<=200); Estimated GFR (African America >60 (>=60 mL/min/1.73m^2); Estimated GFR (Non-African Ame >60 (>=60 mL/min/1.73m^2); Globulin 3.7 g/dL; Glucose 94 mg/dL (74-106); HDL Cholesterol 69 mg/dL (40-60); Total Protein 7.5 g/dL (6.4-8.2); Triglycerides 166 mg/dL (<=150); VLDL CHOLESTEROL 33.2 mg/dL
[2024-05-13 13:08] LABS: Thyroid Stimulating Hormone 0.939 uIU/mL (0.358-3.740)
[2024-05-15 04:07] LABS: Vitamin B12 633 pg/mL (232-1245)
== END 2024-05-13 11:23 | disposition home or self-care (01) ==
PROVIDERS: PCP Internal Medicine; Visit Provider Internal Medicine
DX: Z12.31 Encounter for screening mammogram for malignant neoplasm of breast (principal); M25.552 Pain in left hip; M16.12 Unilateral primary osteoarthritis, left hip
CPT/HCPCS: 36415; 73502; 77063; 77067; 80053; 80061; 82607; 84443; 85025